=== PATIENT | male | born 1965 | race Caucasian/White ===

== ENCOUNTER 2020-07-29 02:35 | Emergency (ER) | payer SELFPAY ==
[2020-07-29 04:22] LABS: HEMOGLOBIN 16.5 gm/dl (14.0-17.5); RED BLOOD COUNT 5.42 M/UL (4.20-5.50); WHITE BLOOD COUNT 10.6 K/UL (4.5-11.0)
[2020-07-29 04:32] LABS: BUN/CREATININE RATIO 9 (0-10)
[2020-07-29] MEDS ORDERED: PEPCID20 MG PO (05:37)
[2020-07-29] MEDS ORDERED: CEPHALEXIN500 MG PO (05:37)
[2020-07-29] MEDS ORDERED: PREDNISONE50 MG PO (05:37)
== END 2020-07-29 05:47 | disposition home or self-care (01) ==
LOC: ER1 02:35
PROVIDERS: Physician Assistant
DX: T78.40XA Allergy, unspecified, initial encounter (principal); L01.00 Impetigo, unspecified; F17.200 Nicotine dependence, unspecified, uncomplicated
CPT/HCPCS: 80053; 85025; 85652; 86140; 96374; 96375; 99283; J1200; J2930